=== PATIENT | female | born 1960 | race Caucasian/White ===

== ENCOUNTER 2017-12-07 14:43 | Emergency (ER) | END 2017-12-07 17:00 | disposition home or self-care (01) ==

== ENCOUNTER 2018-08-07 09:33 | Day surgery (SDC) | payer OTHER ==
[~2018-08-07] VITALS: Ht 160 cm; Wt 82.4 kg
[~2018-08-07 09:33] MED LIST: ACET500C5 PO; LIDOCAINE 2% (SDV) 5 ML INJ ONE; TRAM50TA2 PO
[2018-08-07] MEDS ORDERED: PROPOFOL 60 ML ONE (11:31)
--- NOTE | 2018-08-07 11:32 | PREAC ---
Date/Time of Note Date/Time of Note DATE: 08/07/18 TIME: 11:29 Anesthesia Eval and Record Evaluation Time Pre-Procedure Interview DATE: 08/07/18 TIME: 11:29 Age 58 Sex female NPO: 8 hrs Preoperative diagnosis screening Planned procedure colonoscopy Past Medical History Past Medical History: Includes Cardio: Dyslipidemia Endo: Diabetes Neuro: Peripheral neuropathy, Other (DJD) Musculoskeletal: Osteoarthritis GI: GERD Psych: Depression, Anxiety, Other (fibromyalgia) Surgery & Anesthesia Issues No known issue Meds Anticoagulation: No Beta Melvin within 24 hr: No Reason Beta Melvin not given: Pt. not on B-Melvin Active Scripts Acetaminophen* (Tylophen*) 500 Mg Capsule, 1 CAP PO Q6H PRN for PAIN AND OR ELEVATED TEMP, #30 CAP Prov:TYSHAWN COMBS PA-C 12/07/17 Tramadol HCl (Tramadol HCl) 50 Mg Tablet, 50 MG PO Q6 PRN for PAIN, #20 TAB Prov:TYSHAWN COMBS PA-C 12/07/17 Meds reviewed: Yes Allergies Coded Allergies: Penicillins (Verified Allergy, Mild, 12/07/17) Sulfa (Sulfonamide Antibiotics) (Verified Allergy, Unknown, 12/07/17) thimerosal (Verified Allergy, Unknown, 12/07/17) doxycycline (Verified Adverse Reaction, Unknown, VOMITING, 12/07/17) Allergies Reviewed: Yes Labs/Studies Labs Reviewed: Reviewed by anesthesiologist test: Negative Studies: ECG Pre-procedure Exam Airway: Adequate mouth opening, Adequate thyromental dist Mallampati: Mallampati III Teeth: Normal Lung: Normal Heart: Normal ASA Physical Status ASA physical status: 2 Emergency: None Planned Anesthetic General/MAC: MAC Planned Pain Management Parenteral pain med Pre-operative Attestations Prior to commencing anesthesia and surgery, the patient was re-evaluated, there was verification of: *The patient's identity *The results of appropriate recent lab work and preoperative vital signs *The above evaluation not changing prior to induction *Anesthetic plan, risk benefits, alternative and complications discussed with patient/family; questions answered; patient/family understands, accepts and wishes to proceed. SEAN MORFIN MD Aug 07, 2018 11:32
[2018-08-07 11:39] VITALS: Ht 160 cm; Wt 82.4 kg
[2018-08-07 11:55] VITALS: BP 146/84; PULSE 76; RESP 18
[2018-08-07] MEDS ORDERED: atorvastatin PO (11:58)
[2018-08-07] MEDS ORDERED: lisinopril PO (11:58)
[2018-08-07] MEDS ORDERED: ondansetron PO (11:58)
[2018-08-07] MEDS ORDERED: flonase NASAL (11:58)
[2018-08-07] MEDS ORDERED: claritin PO (11:58)
[2018-08-07] MEDS ORDERED: naproxen PO (11:58)
[2018-08-07 12:47] VITALS: BP 126/85; PULSE 74; RESP 16
--- NOTE | 2018-08-07 16:14 | PAC ---
Date/Time of Note Date/Time of Note DATE: 08/07/18 TIME: 16:13 Post-Anesthesia Notes Post-Anesthesia Note Last documented vital signs Vital Signs Date Temp Pulse Resp B/P (MAP) Pulse Ox O2 O2 Flow FiO2 Time Delivery Rate 08/07/18 74 16 126/85 94 Room Air 12:47 (99) 08/07/18 98.4 11:55 Activity: WNL Respiratory function: WNL Cardiovascular function: WNL Mental status: Baseline Pain reasonably controlled: Yes Hydration appropriate: Yes Nausea/Vomiting absent: Yes SEAN MORFIN MD Aug 07, 2018 16:14
== END 2018-08-07 15:19 | disposition home or self-care (01) ==
LOC: GIL 09:33
PROVIDERS: ATTEND Internal Medicine Gastroenterology
DX: Z12.11 Encounter for screening for malignant neoplasm of colon (principal); D12.0 Benign neoplasm of cecum; K64.8 Other hemorrhoids; E11.9 Type 2 diabetes mellitus without complications; E78.5 Hyperlipidemia, unspecified
CPT/HCPCS: 45380; 88305; Z7610